=== PATIENT | female | born 1945 | race Caucasian/White ===

== ENCOUNTER 2016-09-13 16:54 | Emergency (ER) | payer OTHER ==
[~2016-09-13] VITALS: Ht 162.6 cm; Wt 75.1 kg
[~2016-09-13 16:54] MED LIST: ACIPHEX20 MG PO; AMBIEN10 MG PO; CELEBREX200 MG PO; CITRUCEL500 MG PO; CLARITIN-D 21 TABLET PO; CRESTOR10 MG PO; CYMBALTA60 MG PO; DIAZEPAM5 MG PO; EXCEDRIN EXTRA1 EACH PO; HYDROCHLOROTH12.5 MG PO; IMODIUM MS REL1 EACH PO; LOPRESSOR50 MG PO; LOTREL 10/41 CAPSULE PO; NEXIUM40 MG PO; PREMARIN0.45 MG PO; PROZAC20 MG PO; SEROQUEL50 MG PO; SYNTHROID100 MCG PO; TRICOR145 MG PO; XARELTO15 MG PO
[2016-09-13] MEDS ORDERED: HYDROCHLOROTH12.5 M3 PO (17:30)
[2016-09-13 17:31] LABS: MCH 29.4 PG (29.0-34.0); MCHC 32.8 G/DL (30.0-36.0); MCV 89.4 FL (83-99); MEAN PLAT.VOLUME 9.4 uM^3 (9.5-12.4); PLATELET COUNT 254 K/uL (156-360); RBC DIS.WIDTH-CV 13.1 % (11.8-14.6); RBC DIS.WIDTH-SD 42.6 % (39-53); RED BLOOD COUNT 4.36 M/uL (3.80-5.20); WHITE BLOOD COUNT 7.3 K/uL (4.1-10.2)
[2016-09-13] MEDS ORDERED: ENDOCET 5-3251 EACH PO (17:31)
[2016-09-13] MEDS ORDERED: LEVOTHYROXINE100 MCG PO (17:31)
[2016-09-13] MEDS ORDERED: ACIPHEX20 MG PO (17:32)
[2016-09-13] MEDS ORDERED: PROZAC20 MG PO (17:32)
[2016-09-13] MEDS ORDERED: LOPRESSOR50 MG PO (17:33)
[2016-09-13] MEDS ORDERED: BENAZEPRIL HCL20 MG PO (17:33)
[2016-09-13 17:42] LABS: INTER. NORMALIZED RATIO 1.1; PROTHROMBIN TIME 11.1 (9.2-11.2); PTT 25.2 (25-32)
[2016-09-13 17:43] LABS: CHLORIDE 103 mEq/L (99-109); POTASSIUM 4.2 mEq/L (3.7-5.4); SODIUM 138 mEq/L (136-147)
[2016-09-13 17:45] LABS: GLUCOSE 93 mg/dL (70-99)
[2016-09-13 17:46] LABS: ANION GAP 11 MEQ/L (2-14)
[2016-09-13 17:49] LABS: GFR ESTIMATE (CALCULATED) > 59 mL/min/
[2016-09-13 17:50] LABS: UREA NITROGEN (BUN) 27 mg/dL (9-23)
[2016-09-13 17:51] LABS: TROP-I INTERPRETATION NEGATIVE; TROPONIN-I < 0.01 ng/mL (0.0-0.30)
[2016-09-13 18:07] VITALS: BP 154/90
== END 2016-09-13 18:08 | disposition home or self-care (01) ==
LOC: EME 16:54
PROVIDERS: Nurse Practitioner Family
DX: S00.93XA Contusion of unspecified part of head, initial encounter (principal); W10.9XXA Fall (on) (from) unspecified stairs and steps, initial encounter; F32.9 Major depressive disorder, single episode, unspecified; J44.9 Chronic obstructive pulmonary disease, unspecified; E78.5 Hyperlipidemia, unspecified; I10 Essential (primary) hypertension; I25.2 Old myocardial infarction; K21.9 Gastro-esophageal reflux disease without esophagitis; Z88.0 Allergy status to penicillin
CPT/HCPCS: 80048; 84484; 85027; 85610; 85730; 99281; 99284

== ENCOUNTER → 2017-04-05 | Outpatient (CLI) | payer OTHER ==
[~2017-04-05] MED LIST changes: +BENAZEPRIL HCL20 MG PO; +ENDOCET 5-3251 EACH PO; +HYDROCHLOROTH12.5 M3 PO; +LEVOTHYROXINE100 MCG PO
== END | disposition home or self-care (01) ==
LOC: NUC 10:38
DX: S32.019D Unspecified fracture of first lumbar vertebra, subsequent encounter for fracture with routine healing (principal); M41.85 Other forms of scoliosis, thoracolumbar region
CPT/HCPCS: 78306; A9503

== ENCOUNTER 2017-07-12 05:25 | Day surgery (SDC) | payer OTHER ==
[~2017-07-12] VITALS: Ht 162.6 cm; Wt 70.8 kg
[~2017-07-12 05:25] MED LIST changes: +ADVAIR 250/501 DISK IH; +CARDURA1 M1 PO; +CITRUCEL PO; -CLARITIN-D 21 TABLET PO; +CLARITIN10 MG PO; +COMBIVENT RESPIM4 GM IH; +CYANOCOBALAM1000 MCG PO; +ENDOCET 10-3251 EACH PO; +LIPITOR80 MG PO; +LO-DOSE ASPIRIN81 M1 PO; +MICROZIDE12.5 M1 PO; +PLAVIX75 MG PO; +VALIUM5 MG PO; +VITAMIN D2000 UNIT PO; +WELLBUTRIN XL300 MG PO
[2017-07-12 06:12] LABS: HEMATOCRIT 38.8 % (36.0-46.0); MCH 31.2 PG (29.0-34.0); MCHC 33.5 G/DL (30.0-36.0); PLATELET COUNT 266 K/uL (156-360); RBC DIS.WIDTH-SD 47.7 % (39-53); RED BLOOD COUNT 4.17 M/uL (3.80-5.20); WHITE BLOOD COUNT 7.1 K/uL (4.1-10.2)
[2017-07-12 06:33] LABS: CHLORIDE 103 MEQ/L (99-109); CREATININE 0.8 MG/DL (0.6-1.3); GFR ESTIMATE (CALCULATED) > 59 mL/min/; GLUCOSE 131 mg/dL (70-99); POTASSIUM 3.6 MEQ/L (3.7-5.4); SODIUM 137 MEQ/L (136-147); UREA NITROGEN (BUN) 23 mg/dL (9-23)
[2017-07-12 06:57] VITALS: BP 123/69
[2017-07-12 11:28] VITALS: BP 122/64
[2017-07-12 12:10] VITALS: BP 107/57
== END 2017-07-12 12:20 | disposition home or self-care (01) ==
LOC: SDC 05:25
PROVIDERS: Neurological Surgery
PROC: 0QU03JZ Supplement Lumbar Vertebra with Synthetic Substitute, Percutaneous Approach (ICD-10-PCS; principal; 2017-07-12)
DX: S32.019A Unspecified fracture of first lumbar vertebra, initial encounter for closed fracture (principal); G89.21 Chronic pain due to trauma; G89.29 Other chronic pain; M79.604 Pain in right leg; I10 Essential (primary) hypertension; J44.9 Chronic obstructive pulmonary disease, unspecified; Z85.41 Personal history of malignant neoplasm of cervix uteri; E07.9 Disorder of thyroid, unspecified; Z95.5 Presence of coronary angioplasty implant and graft; Z98.890 Other specified postprocedural states; Z88.0 Allergy status to penicillin; W19.XXXA Unspecified fall, initial encounter
CPT/HCPCS: 80048; 85027; 93005; J0131; J0330; J1170; J2405; J2765; J3010; S0020

== ENCOUNTER → 2017-08-05 | Outpatient (CLI) | payer OTHER | END | disposition home or self-care (01) | LOC: RAD 13:40 | PROC: 3E0R3KZ Introduction of Other Diagnostic Substance into Spinal Canal, Percutaneous Approach (ICD-10-PCS; principal; 2017-08-05) | DX: M47.896 Other spondylosis, lumbar region (principal); M48.05 Spinal stenosis, thoracolumbar region; M48.56XA Collapsed vertebra, not elsewhere classified, lumbar region, initial encounter for fracture; E88.2 Lipomatosis, not elsewhere classified; Z98.890 Other specified postprocedural states | CPT/HCPCS: 62304; 72132 ==